=== PATIENT | male | born 1955 | race Caucasian/White ===

== ENCOUNTER → 2016-03-27 | Outpatient (CLI) | payer OTHER ==
[~2016-03-27] MED LIST: ACET325T96 PO; ALPR-411 PO; GADAVIST IV PRN; GLUCAGON FOR INJ 1 MG VIAL SQ SCH; NURSING VERBAL MED ORDER ONE; OXYC1TAB3 PO; PARO10TA3 PO; PRED10TA PO; TRAZ50TA35 PO
--- NOTE | 2016-03-27 09:47 | DIAGNOSTIC IMAGING REPORT ---
MR ENTEROGRAPHY OF THE ABDOMEN AND PELVIS WITHOUT AND WITH CONTRAST CLINICAL HISTORY: CROHN'S DISEASE COMPARISON STUDY: CT scan dated 01/02/2016 FINDINGS: Imaging was performed before and after the administration of 7 cc of intravenous Gadavist. 1 mg of intramuscular glucagon was administered. There is an elongated right lobe of the liver. No hepatic masses are visualized. No splenic masses are visualized. No renal masses are visualized. No gallstones are visualized. There is no ductal dilatation. No pancreatic masses are visualized. There is no evidence of bowel obstruction. There are areas of minimal bowel wall thickening with the distal ileum. The findings are consistent with the clinical diagnosis of Crohn's. No definite active inflammation is demonstrated. There is a left lower quadrant ostomy. There are inflammatory changes involving the lower rectum/anus with bowel wall thickening. There is a sinus tract extending to the right gluteal fold. There is a possible second sinus tract medial to the larger right gluteal fold sinus tract. There are no fluid collections to indicate a drainable abscess. There is a 1 cm perirectal lymph node, likely reactive. This remains unchanged the prior study. IMPRESSION: 1. Postoperative changes with a left lower quadrant colostomy 2. No evidence of bowel obstruction 3. Persistent inflammatory changes surrounding the lower rectum and anus with bowel wall thickening. 4. Sinus tract extending to the right gluteal fold 5. 1 cm right perirectal lymph node likely reactive 6. There are no fluid collections to indicate a drainable abscess Electronically signed by: Matt Hernandez M.D. 03/27/2016 9:45 AM Dictated Date/Time: 03/27/2016 9:28 AM
== END | disposition home or self-care (01) ==
LOC: C.MRI 07:32
PROVIDERS: ATTEND Internal Medicine Gastroenterology
DX: K50.90 Crohn's disease, unspecified, without complications (principal)

== ENCOUNTER → 2016-05-07 | Day surgery (SDC) | payer OTHER ==
[2016-05-02 12:38] VITALS: BMI 21.0
[~2016-05-07] VITALS: Ht 190.5 cm; Wt 78.2 kg
[~2016-05-07] MED LIST changes: -GADAVIST IV PRN; -GLUCAGON FOR INJ 1 MG VIAL SQ SCH; +LIDOCAINE HCL 2% 2 ML VIAL (20MG/ML) ONE; +MIDAZOLAM HCL 1 MG/ML 2ML VIAL ONE; -NURSING VERBAL MED ORDER ONE; +PROPOFOL IV EMULSION 10 MG/ML 20 ML VIAL IV ONE; +SODIUM CHLORIDE 0.9% 500ML 500 ML IV ONE
[2016-05-07 13:35] VITALS: Ht 190.5 cm; Wt 78.2 kg
[2016-05-07 13:44] VITALS: TEMP 36.3
--- NOTE | 2016-05-07 14:33 | Endo History and Physical ---
History & Physical Date of Service: May 07, 2016. Chief Complaint: CHRONS Referring Physician: DR. DAVE BANGURA History of Present Illness crohn dz; stricture Past Surgical History Hx Cardiac Surgery: No Hx Internal Defibrillator: No Hx Pacemaker: No Hx Abdominal Surgery: Yes (COLON RESECTION WITH COLOSTOMY, MARSUPIALIZATION BANDS X 2) Hx of Implantable Prosthesis: No Hx Post-Op Nausea and Vomiting: No Hx Cancer Surgery: No Hx Thoracic Surgery: No Hx Orthopedic: No Hx Urinary Tract Surgery: No Family History Colon CA, IBD Social History Smoking Status: Current Every Day Smoker Hx Substance Use: No Hx Alcohol Use: Yes (2-3 BEERS DAILY ON AVERAGE) Allergies Coded Allergies: Ibuprofen (Verified Allergy, Unknown, HIVES, 05/07/16) Current Medications Reported Home Medications Medications Dose Route/Sig Max Daily Dose Days Date Category Dose Instructions Tylenol (Acetaminophen) 325 Mg Tab 1-3 Tab PO DAILY PRN 05/02/16 Reported Xanax (Alprazolam) 0.5 Mg Tab 0.5 Mg PO Q6H PRN 05/02/16 Reported Roxicodone Ir (Oxycodone HCl) 5 Mg Tab 5 Mg PO Q4H PRN 05/02/16 Reported Paroxetine (Paroxetine HCl) 10 Mg Tab 1 Tab PO BID 05/02/16 Reported Prednisone 10 Mg Tab 0 PO UD 05/02/16 Reported STERAPRED 10MG 12 DAY Trazodone (Trazodone HCl) 50 Mg Tab 1-2 Tab PO HS 05/02/16 Reported Vital Signs Weight (Kilograms): 78.18 Height (Feet): 6 Height (Inches): 3 Date Time Temp Pulse Resp B/P Pulse Ox O2 Delivery O2 Flow Rate FiO2 05/07/16 13:44 36.3 83 18 125/83 97 Room Air Physical Exam AAO x3 Nl s1s2 Lungs CTA Abd soft NT/ND + BS - CCE Assessment and Plan colon via colostomy; FS
--- NOTE | 2016-05-07 15:17 | Discharge Instructions ---
Endoscopy Patient Instructions Date / Procedure(s) Performed May 07, 2016. Colonoscopy Allergy Information Coded Allergies: Ibuprofen (Verified Allergy, Unknown, HIVES, 05/07/16) Discharge Date / Findings May 07, 2016. stenosis at 15 cm - mild - bx colon/TI via stoma negative Medication Instructions Restart Stopped Medication(s): Reported Home Medications Medications Dose Route/Sig Max Daily Dose Days Date Category Dose Instructions Tylenol (Acetaminophen) 325 Mg Tab 1-3 Tab PO DAILY PRN 05/02/16 Reported Xanax (Alprazolam) 0.5 Mg Tab 0.5 Mg PO Q6H PRN 05/02/16 Reported Roxicodone Ir (Oxycodone HCl) 5 Mg Tab 5 Mg PO Q4H PRN 05/02/16 Reported Paroxetine (Paroxetine HCl) 10 Mg Tab 1 Tab PO BID 05/02/16 Reported Prednisone 10 Mg Tab 0 PO UD 05/02/16 Reported STERAPRED 10MG 12 DAY Trazodone (Trazodone HCl) 50 Mg Tab 1-2 Tab PO HS 05/02/16 Reported Reported Home Medications Medications Dose Route/Sig Max Daily Dose Days Date Category Dose Instructions Tylenol (Acetaminophen) 325 Mg Tab 1-3 Tab PO DAILY PRN 05/02/16 Reported Xanax (Alprazolam) 0.5 Mg Tab 0.5 Mg PO Q6H PRN 05/02/16 Reported Roxicodone Ir (Oxycodone HCl) 5 Mg Tab 5 Mg PO Q4H PRN 05/02/16 Reported Paroxetine (Paroxetine HCl) 10 Mg Tab 1 Tab PO BID 05/02/16 Reported Prednisone 10 Mg Tab 0 PO UD 05/02/16 Reported STERAPRED 10MG 12 DAY Trazodone (Trazodone HCl) 50 Mg Tab 1-2 Tab PO HS 05/02/16 Reported Provider Instructions Activity Restrictions - No exercising or heavy lifting for 24 hours. - Do not drink alcohol the day of the procedure. - Do not drive a car or operate machinery until the day after the procedure. - Do not make any important decisions or sign important papers in 24 hours after the procedure. Following Day: - Return to full activity which may include returning to work/school. Diet Start your diet with liquids and light foods (jello, soup, juice, toast). Then eat your usual diet if not nauseated. Treatment For Common After Affects For mild abdominal pain, bloating, or excessive gas: - Rest - Eat lightly - Lie on right side Follow-Up Information Follow-up with DR. DAVE BANGURA as scheduled Anesthesia Information What You Should Know You have had a procedure that required some medicine to reduce anxiety and discomfort. This treatment is called moderate sedation. After receiving the treatment, you may be sleepy, but you will be able to breathe on your own. The effects of the treatment may last for several hours. Follow these instructions along with Activity/Diet recommendations noted above: * Do NOT do anything where dizziness or clumsiness would be dangerous. * Rest quietly at home today, then you can be up and about tomorrow. * Have a responsible person stay with you the rest of today. * You may have had an I.V. today. If so, you may take the dressing off later today. Recommendations Call your doctor if: * Trouble breathing * Continuous vomiting for more than 24 hours * Temperature above 101 degrees * Severe abdominal pain or bloating * Pain not relieved by pain medicine ordered * There is increased drainage or redness from any incision * A large amount of rectal bleeding greater than 2-3 tablespoons. (If you had a polyp/s removed or have hemorrhoids, a small amount of blood - from the rectum is to be expected.) * You have any unanswered questions or concerns. IN THE EVENT OF A SERIOUS EMERGENCY, GO TO THE NEAREST EMERGENCY ROOM Your discharge instructions were prepared by provider Chris Yadav. Patient Instructions Signature Page Jose Raul Raman Patient (or Guardian) Signature/Date: I have read and understand the instructions given to me by my caregivers. Caregiver/RN/Doctor Signature/Date: The above-named patient and/or guardian has received patient instructions on this date. + Original Patient Signature Page (only) stays with chart. Please make copy for patient.
--- NOTE | 2016-05-07 15:23 | GI REPORT ---
Procedure Date: 05/07/2016 2:46 PM Procedure: Flexible Sigmoidoscopy Indications: Crohn's disease Medicines: Propofol per Anesthesia Complications: No immediate complications. Estimated blood loss: Minimal. Estimated Blood Loss: Estimated blood loss was minimal. Procedure: Pre-Anesthesia Assessment: - Prior to the procedure, a History and Physical was performed, and patient medications and allergies were reviewed. The patient's tolerance of previous anesthesia was also reviewed. The risks and benefits of the procedure and the sedation options and risks were discussed with the patient. All questions were answered, and informed consent was obtained. Prior Anticoagulants: The patient has taken no previous anticoagulant or antiplatelet agents. ASA Grade Assessment: II - A patient with mild systemic disease. After reviewing the risks and benefits, the patient was deemed in satisfactory condition to undergo the procedure. After obtaining informed consent, the endoscope was passed under direct vision. Throughout the procedure, the patient's blood pressure, pulse, and oxygen saturations were monitored continuously. The Endoscope was introduced through the anus and advanced to 30 cm from the anal verge. The flexible sigmoidoscopy was accomplished without difficulty. The patient tolerated the procedure well. The quality of the bowel preparation was good. Findings: The perianal and digital rectal examinations were normal. Pertinent negatives include normal sphincter tone and no palpable rectal lesions. A benign-appearing, intrinsic moderate stenosis measuring 5 cm (in length) x 7 mm (inner diameter) was found at 15 cm proximal to the anus and was traversed. Biopsies were taken with a cold forceps for histology. Estimated blood loss was minimal. Verification of patient identification for the specimen was done by the physician and highway traffic control technician using the patient's name and medical record number. The area from 15 to 30 cm proximal to the anus appeared normal. The retroflexed view of the distal rectum and anal verge was normal and showed no anal or rectal abnormalities. Impression: - Stricture at 15 cm proximal to the anus. Biopsied. - The area from 15 to 30 cm proximal to the anus is normal. Recommendation: - Discharge patient to home (ambulatory). MD Chris Salcido MD 05/07/2016 3:22:44 PM This report has been signed electronically. Note Initiated On: 05/07/2016 2:46 PM I attest to the content of the Intraoperative Record and orders documented therein, exceptions below
--- NOTE | 2016-05-07 15:25 | GI REPORT ---
Procedure Date: 05/07/2016 2:40 PM Procedure: Colonoscopy Indications: Crohn's disease Medicines: Propofol per Anesthesia Complications: No immediate complications. Estimated blood loss: Minimal. Estimated Blood Loss: Estimated blood loss was minimal. Procedure: Pre-Anesthesia Assessment: - Prior to the procedure, a History and Physical was performed, and patient medications and allergies were reviewed. The patient's tolerance of previous anesthesia was also reviewed. The risks and benefits of the procedure and the sedation options and risks were discussed with the patient. All questions were answered, and informed consent was obtained. Prior Anticoagulants: The patient has taken no previous anticoagulant or antiplatelet agents. ASA Grade Assessment: II - A patient with mild systemic disease. After reviewing the risks and benefits, the patient was deemed in satisfactory condition to undergo the procedure. After I obtained informed consent, the scope was passed under direct vision. Throughout the procedure, the patient's blood pressure, pulse, and oxygen saturations were monitored continuously. The scope was introduced through the sigmoid colostomy and advanced to the terminal ileum, with identification of the appendiceal orifice and IC valve. The colonoscopy was performed without difficulty. The patient tolerated the procedure well. The quality of the bowel preparation was good. Findings: The ileum and colon (entire examined portion) appeared normal. Biopsies were taken with a cold forceps for histology. Estimated blood loss was minimal. Verification of patient identification for the specimen was done by the physician and communication technician using the patient's name and medical record number. The exam was otherwise without abnormality. The terminal ileum appeared normal. Impression: - The terminal ileum and entire examined colon are normal. Biopsied. - The examination was otherwise normal. - The examined portion of the ileum was normal. Recommendation: - Discharge patient to home (ambulatory). - Resume regular diet. - Continue present medications. - Return to GI clinic as previously scheduled. - Await pathology results. MD Chris Salcido MD 05/07/2016 3:25:14 PM This report has been signed electronically. Note Initiated On: 05/07/2016 2:40 PM I attest to the content of the Intraoperative Record and orders documented therein, exceptions below
--- NOTE | 2016-05-07 15:38 | Anesthesiology Progress Note ---
Anesthesia Post Op Note Date & Time May 07, 2016 at 15:38 Vital Signs Pain Intensity: 0 Vital Signs Past 12 Hours Date Time Temp Pulse Resp B/P Pulse Ox O2 Delivery O2 Flow Rate FiO2 05/07/16 13:44 36.3 83 18 125/83 97 Room Air Notes Mental Status: alert / awake / arousable Nausea / Vomiting: adequately controlled Pain: adequately controlled Airway Patency, RR, SpO2: stable & adequate BP & HR: stable & adequate Hydration State: stable & adequate Anesthetic Complications: no major complications apparent
[2016-05-07 15:54] VITALS: BP 127/75; PULSE 75; O2SAT 98
== END | disposition home or self-care (01) ==
LOC: C.GI 13:31
PROVIDERS: ATTEND Internal Medicine Gastroenterology
DX: K50.90 Crohn's disease, unspecified, without complications (principal); F17.210 Nicotine dependence, cigarettes, uncomplicated; Z88.6 Allergy status to analgesic agent; K21.9 Gastro-esophageal reflux disease without esophagitis; M19.90 Unspecified osteoarthritis, unspecified site; F41.9 Anxiety disorder, unspecified